=== PATIENT | female | born 1955 | race Caucasian/White ===

== ENCOUNTER 2024-08-13 08:33 | Emergency (ER) | payer MEDICARE, OTHER, SELFPAY ==
[2024-08-13 08:36] VITALS: BP 209/129
[2024-08-13 08:51] LABS: Urine Albumin 1+ (Neg - Trace); Urine Bilirubin 2+ (Negative); Urine Character Clear (Clear); Urine Color Amber; Urine Glucose Negative (Negative); Urine Ketone Negative (Negative); Urine Leukocyte 1+ (Negative); Urine Nitrite Positive (Negative); Urine Occult Blood 4+ (Negative); Urine Urobilinogen 3+ (Neg - 1+)
[2024-08-13 08:57] LABS: Urine Bacteria Few (Negative); Urine Red Blood Cell 21-25 /HPF (0-2)
[2024-08-13 09:00] VITALS: BP 174/108
[2024-08-13] MEDS: TORADOL 15 MG IV (09:07)
[2024-08-13 09:11] VITALS: BMI 22.4
[2024-08-13 09:13] LABS: % Basophils 0.3 % (0-2); % Immature Granulocytes 0.4 % (0-0.5); % Lymphocytes 15.7 % (20.5-51.1); % Monocytes 5.1 % (1.7-9.3); % Neutrophils 77.5 % (42.2-75.2); Absolute Eosinophils 0.1 10^3/uL (0-0.7); Absolute Lymphocytes 1.4 10^3/uL (1.2-3.4); Absolute Monocytes 0.5 10^3/uL (0.1-0.6); Absolute Neutrophils 7.1 10^3/uL (1.4-6.5); Hematocrit 44.2 % (37.0-47.0); Hemoglobin 14.9 g/dL (12.0-16.0); Mean Corp Hgb Conc. 33.7 g/dL (33.0-37.0); Mean Corpuscular Volume 95.1 fL (81.0-99.0); Mean Platelet Volume 10.3 fL (7.4-10.4); Nucleated Red Blood Cells % 0 %; Platelet Count 241 10^3/uL (130-400); Red Blood Cell Count 4.65 10^6/uL (4.20-5.40); Red Cell Dist. Width 12.2 % (11.5-14.5); White Blood Cell Count 9.2 10^3/uL (4.8-10.8)
[2024-08-13 09:44] LABS: Blood Urea Nitrogen 15 mg/dl (7-17); Calcium 9.6 mg/dl (8.4-10.2); Carbon Dioxide 26 mmol/L (22-30); Chloride 107 mmol/L (98-107); Estimated Creatinine Clearance 47 ml/min; Glucose 113 mg/dl (70-99); Sodium 141 mmol/L (135-145); eGFR > 60.00
[2024-08-13 10:00] VITALS: BP 166/96
[2024-08-13] MEDS: MORPHINE SULFATE 4 MG IV (10:25)
[2024-08-13 11:00] VITALS: BP 154/89
--- NOTE | 2024-08-13 11:10 | ED.GENMED ---
History of Present Illness
General
Chief Complaint: Flank Pain
Time Seen by Provider: 08/13/24 08:54
History of Present Illness
History of Present Illness:
69-year-old female presents the emergency department for evaluation of left flank pain beginning this morning. She also reports having dysuria and urinary urgency for the past 2 to 3 days. Denies any fever but did have chills this morning. No
nausea or vomiting. No prior history of kidney stone
Past History
Past History
ED Past Medical History: None and HTN
ED Past Surgical History: None
Social History
Tobacco: Non-smoker
Personal:
Living: with family
Employment: Employed
Review of Systems
Review of Systems
Allergies reviewed?: Yes
All Other Systems: ROS reviewed and negative except as documented in HPI and ROS
Phy Exam
Physical Exam
Physical Exam:
GEN: Well appearing, NAD, WDWN
HEENT: Oral mucosa moist, no scleral icterus
Cardiac: Regular rate
Lung: No respiratory distress, no tachypnea
Abdomen: Soft, grossly nontender, moderate left CVA tenderness
MSK: No gross deformity or injuries
Skin: Good color, no pallor or jaundice, no rashes
Neuro: AO x3, moves all extremities freely
Psych: Calm, cooperative
Sepsis
Sepsis Screening
Sepsis Assessment: Sepsis Ruled Out
Sepsis Screen
Sepsis Screen: Sepsis Ruled Out
Date: 08/13/24
Time: 14:59
Course
Orders/Labs/Results
Orders:
Orders
08/13/24 08:42
Urinalysis Reflex To Culture Urgent
Date Specimen was Collected: 08/13/24
Time Specimen was Collected: 08:40
Urine Microscopic Reflex Cult Urgent
Urine Culture Urgent
MARKUS Source: U
Specimen Description:
Date Specimen was Collected: 08/13/24
Time Specimen was Collected: 08:40
08/13/24 09:01
Ketorolac [Toradol] 15 mg IV NOW STA
08/13/24 09:04
Basic Metabolic Panel Urgent
Complete Blood Count/With Diff Urgent
08/13/24 09:26
CT Abd/pel Without Iv Or Oral Urgent
Comment:
Reason For Exam: L flank pain
08/13/24 10:18
Morphine Sulfate 4 mg IV NOW STA
08/13/24 11:10
CefTRIAXone [Rocephin] 1,000 mg IV NOW STA
Abnormal Lab Results
08/13/24 08/13/24
08:42 09:04
MCH 32.0 H pg
(27.0-31.0)
Absolute Neuts (auto) 7.1 H 10^3/uL
(1.4-6.5)
Neutrophils % 77.5 H %
(42.2-75.2)
Lymphocytes % 15.7 L %
(20.5-51.1)
Glucose 113 H mg/dl
(70-99)
Ur Occult Blood Reflex 4+ A
(Negative)
Urine Nitrite (Reflex) Positive A
(Negative)
Urine Bilirubin 2+ A
(Negative)
Urine Urobilinogen 3+ A
(Neg - 1+)
Leukocyte Esterase Rfl 1+ A
(Negative)
Urine RBC 21-25 A /HPF
(0-2)
Urine Bacteria (Reflex) Few A
(Negative)
Urine Albumin (Reflex) 1+ A
(Neg - Trace)
08/13/24 09:04
08/13/24 09:04
Vital Signs
Initial and Last Documented VS:
Initial Vital Signs
Temp Pulse Resp BP Pulse Ox
97.6 F 74 22 209/129 99
08/13/24 08:36 08/13/24 08:36 08/13/24 08:36 08/13/24 08:36 08/13/24 08:36
Last Documented Vital Signs
Temp Pulse Resp BP Pulse Ox
97.6 F 72 14 141/75 95
08/13/24 08:36 08/13/24 10:00 08/13/24 10:00 08/13/24 12:00 08/13/24 12:30
MDM/Problems Addressed
MDM/Problems Addressed:
Patient is found to have a left UVJ stone, her urinalysis is not overly concerning for UTI however given her voiding symptoms we will treat with antibiotics empirically. Pain well-controlled at time of discharge, encourage strict ED return
parameters should symptoms worsen
*Critical Care Note
Total Time (30-74mins, 75-104mins- exclusive of procedures): Not Applicable
ED Attending Note
-
Portions of this chart may have been created with voice recognition software.� Occasional wrong word or��sound alike� substitutions may have occurred due to the inherent limitations of voice recognition software.
Discharge Plan
Departure
Patient Disposition: Home (Routine Discharge)
Date of Disposition: 08/13/24
Time of Disposition: 11:10
Patient with high blood pressure during this ER visit?: No
Discharge Problem:
Ureterolithiasis
Instructions: Kidney stones in adults - ED discharge instructions
Prescriptions:
New
cefdinir 300 mg capsule
300 mg PO Q12H 7 Days Qty: 14 0RF
diclofenac sodium 75 mg tablet,delayed release (DR/EC)
75 mg PO BID Qty: 20 0RF
oxycodone 5 mg tablet
5 mg PO Q8H PRN (Reason: Pain) Qty: 10 0RF
tamsulosin [Flomax] 0.4 mg capsule
0.4 mg PO HS Qty: 10 0RF
No Action
bupropion HCl 150 MG tablet extended release 24 hr
150 mg PO DAILY
atorvastatin 40 MG tablet
40 mg PO QPM Qty: 30 6RF
clopidogrel 75 MG tablet
75 mg PO DAILY Qty: 30 11RF
aspirin 81 MG tablet,delayed release (DR/EC)
81 mg PO DAILY Qty: 0 0RF
carvedilol 3.125 MG tablet
3.125 mg PO BID Qty: 60 6RF
pantoprazole 40 MG tablet,delayed release (DR/EC)
40 mg PO DAILY Qty: 30 6RF
lisinopril 2.5 MG tablet
2.5 mg PO DAILY Qty: 30 6RF
Rx Instructions:
note this is a reduced dosing
alprazolam 0.25 MG tablet
0.25 mg PO BIDPRN PRN (Reason: anxiety) Qty: 10 0RF
Referrals:
Brendan Toney DO [Family Provider] -
Activity Restrictions/Additional Instructions:
Return if you develop fevers or uncontrollable pain
Interventions
Interventions:
*Risk Screen - Suicide Last Done: 08/13/24 08:36
*General Assessment Last Done: 08/13/24 08:36
*Neglect/Abuse Screening Last Done: 08/13/24 08:36
*ED- Fall Risk Assessment Last Done: 08/13/24 09:12
*ED COVID-19 Vaccine History Last Done: 08/13/24 09:12
*Nursing Disposition Last Done: 08/13/24 12:47
IO-Ebezti-Xrhpvbafrg Assessment Last Done: 08/13/24 09:12
ED-Female Genitourinary Assessment Last Done: 08/13/24 09:12
Discharge Date and Time
Discharge Date/Time: 08/13/24 12:47
Print Language: SAMI
[2024-08-13] MEDS: ROCEPHIN 1000 MG IV (11:17)
[2024-08-13 12:00] VITALS: BP 141/75
== END 2024-08-13 12:47 | disposition home or self-care (01) ==
LOC: EMR 08:33
PROVIDERS: Physician Assistant; EMERGENCY PHYSICIAN Emergency Medicine; FAMILY PHYSICIAN Family Medicine
DX: N13.2 Hydronephrosis with renal and ureteral calculous obstruction (principal); I10 Essential (primary) hypertension
CPT/HCPCS: 99284; 96374; 96375; 74176; 80048; 81003; 81015; 85025; 87086